=== PATIENT | male | born 1940 | race Caucasian/White ===

== ENCOUNTER → 2017-05-06 | Outpatient (CLI) | payer MEDICARE ==
[~2017-05-06] MED LIST: ASPIRIN81 M1 PO; LIPITOR10 MG PO; NORVASC10 MG PO; PRILOSEC20 MG PO; VITAMIN B12; [UNRECOGNIZED DRUG - REMARK]; [UNRECOGNIZED DRUG - REMARK]; [UNRECOGNIZED DRUG - REMARK]
[2017-05-06 07:34] LABS: HEMATOCRIT 50.9 % (42.0-52.0); HEMOGLOBIN 16.7 g/dl (14.0-18.0); MEAN CELL VOLUME 100.2 fl (80.0-94.0); MEAN CORPUSCULAR HGB 32.9 pg (27.0-31.0); MEAN CORPUSCULAR HGB CONC 32.8 g/dl (33.0-37.0); MEAN PLATELET VOLUME 10.1 fl (9.6-12.3); RED BLOOD COUNT 5.08 10*6/uL (4.50-5.90); WHITE BLOOD COUNT 8.5 10*3/uL (4.8-10.8)
[2017-05-06 07:58] LABS: ALBUMIN 3.7 gm/dl (3.1-4.5); BUN 10 mg/dl (7-24); CARBON DIOXIDE 34 mmol/L (21-32); CHLORIDE 98 mmol/L (98-107); CHOLESTEROL 170 mg/dL (<200); EST GLOM FILT AFRICAN AMERICAN > 60 ml/min; GLUCOSE 96 mg/dL (65-99); POTASSIUM 4.5 mmol/L (3.5-5.1); SGOT/AST 18 IU/L (3-35); SGPT/ALT 17 U/L (12-78); SODIUM 139 mmol/L (136-145)
[2017-05-06 08:00] LABS: ALKALINE PHOSPHATASE 64 U/L (45-117); BILIRUBIN, TOTAL 1.2 mg/dl (0.2-1.0); HDL CHOLESTEROL 79 mg/dl (40-60); LDL CHOLESTEROL 74 mg/dL (9-159); TOTAL PROTEIN 7.5 gm/dL (6.4-8.2); TRIGLYCERIDES 85 mg/dl (<150); VLDL CHOLESTEROL 17 mg/dL (6-40)
[2017-05-06 08:50] LABS: VITAMIN D, 25-HYDROXY 31.4 ng/mL (30-100)
[2017-05-07 10:03] LABS: PROSTATE SPECIFIC AG FREE 1.13 ng/mL; PSA % FREE 16.9 % (.)
== END | disposition home or self-care (01) ==
LOC: LAB 07:15
PROVIDERS: Family Medicine
DX: J44.9 Chronic obstructive pulmonary disease, unspecified (principal); M51.37 Other intervertebral disc degeneration, lumbosacral region; M48.56XA Collapsed vertebra, not elsewhere classified, lumbar region, initial encounter for fracture; M47.897 Other spondylosis, lumbosacral region; I10 Essential (primary) hypertension; E78.00 Pure hypercholesterolemia, unspecified; E55.9 Vitamin D deficiency, unspecified; N40.0 Benign prostatic hyperplasia without lower urinary tract symptoms; K21.9 Gastro-esophageal reflux disease without esophagitis; E53.8 Deficiency of other specified B group vitamins; Z95.0 Presence of cardiac pacemaker; Z95.5 Presence of coronary angioplasty implant and graft

== ENCOUNTER → 2017-05-16 | Outpatient (CLI) | payer MEDICARE | END | disposition home or self-care (01) | LOC: RAD 11:05 | DX: Z13.820 Encounter for screening for osteoporosis (principal); M81.0 Age-related osteoporosis without current pathological fracture ==

== ENCOUNTER → 2017-09-05 | Outpatient (CLI) | payer MEDICARE ==
[2017-09-05 08:22] LABS: HEMATOCRIT 49.6 % (42.0-52.0); HEMOGLOBIN 16.4 g/dl (14.0-18.0); MEAN CELL VOLUME 100.6 fl (80.0-94.0); MEAN CORPUSCULAR HGB 33.3 pg (27.0-31.0); MEAN CORPUSCULAR HGB CONC 33.1 g/dl (33.0-37.0); MEAN PLATELET VOLUME 10.3 fl (9.6-12.3); RED BLOOD COUNT 4.93 10*6/uL (4.50-5.90); RED CELL DISTRI WIDTH 12.9 % (0-14.5); WHITE BLOOD COUNT 7.6 10*3/uL (4.8-10.8)
[2017-09-05 08:55] LABS: ALBUMIN 3.9 gm/dl (3.1-4.5); BUN 9 mg/dl (7-24); CHLORIDE 96 mmol/L (98-107); CHOLESTEROL 170 mg/dL (<200); CREATININE 0.95 mg/dL (0.70-1.30); POTASSIUM 3.9 mmol/L (3.5-5.1); SGOT/AST 23 IU/L (3-35); SGPT/ALT 19 U/L (12-78); SODIUM 136 mmol/L (136-145); TRIGLYCERIDES 59 mg/dl (<150); VLDL CHOLESTEROL 12 mg/dL (6-40)
[2017-09-05 08:58] LABS: ALKALINE PHOSPHATASE 58 U/L (45-117); HDL CHOLESTEROL 80 mg/dl (40-60); LDL CHOLESTEROL 78 mg/dL (9-159); TOTAL PROTEIN 7.7 gm/dL (6.4-8.2)
== END | disposition home or self-care (01) ==
LOC: LAB 07:39
PROVIDERS: Family Medicine
DX: E78.00 Pure hypercholesterolemia, unspecified (principal); E55.9 Vitamin D deficiency, unspecified; Z79.899 Other long term (current) drug therapy

== ENCOUNTER → 2017-09-16 | Outpatient (CLI) | payer MEDICARE ==
[2017-09-17 09:05] LABS: PROSTATE SPECIFIC AG FREE 0.85 ng/mL; PROSTATE SPECIFIC AG, SERUM 3.7 ng/mL (0.0-4.0)
== END | disposition home or self-care (01) ==
LOC: LAB 12:34
PROVIDERS: Family Medicine
DX: R97.20 Elevated prostate specific antigen [PSA] (principal)

== ENCOUNTER → 2017-09-18 | Outpatient (CLI) | payer MEDICARE | END | disposition home or self-care (01) | LOC: US 12:46 | DX: I65.23 Occlusion and stenosis of bilateral carotid arteries (principal) ==

== ENCOUNTER 2018-03-13 20:55 | Inpatient (IN) | payer MEDICARE ==
[~2018-03-13] VITALS: Ht 182.8 cm; Wt 68.9 kg
--- NOTE | ~2018-03-13 | CON ---
[place], [place] REPORT OF CONSULTATION NAME: FUNMI SCHNEIDER [facility] #: [id number] UNIT #: [id number] ROOM: 511 DOCTOR: NASREEN HOGAN MD BIRTHDATE: [birth year] DOS: 03/16/2018 PULMONARY CONSULTATION, EVALUATION, AND MANAGEMENT CONSULTATION REQUESTED BY: Hospitalist services. REASON FOR CONSULTATION: To assess the patient for current acute exacerbation of chronic obstructive pulmonary disease. HISTORY OF PRESENT ILLNESS: An 78-year-old white male has been noted with ongoing symptoms of cough about a month or so noted with a recent increase of the coughing frequency and intensity. The coughing has been noted worse with intermittent sputum expectoration noted purulent. There were no symptoms of hemoptysis. He was also reporting symptoms of shortness of breath that occurs with exertion with wheezing at times. The patient denies symptoms of hemoptysis. Denies symptoms of chest pain. He has been admitted to the hospital for the medical management of acute exacerbation of COPD. REVIEW OF SYSTEMS: CONSTITUTIONAL SYMPTOMS: Fatigue and tiredness has reported. Denies symptoms of fever or chills. EYES: Denies burning, redness, or tenderness. EAR, NOSE, AND THROAT SYMPTOMS: Denies sore throat, hoarseness, or otalgia. GASTROINTESTINAL SYMPTOMS: Denies dysphagia, nausea, vomiting, diarrhea, abdominal pain, hematemesis, or melena. CARDIOVASCULAR SYSTEM: Denies angina pain, palpitation, and edema of the lower extremities. LUNGS: The patient was noted with lightheadedness. The patient with the coughing previously. No wheezing. Cardiac syncope. GENITOURINARY SYMPTOMS: No dysuria, suprapubic pain, or hematuria. MUSCULOSKELETAL: No acute joint pain, redness, or tenderness. SKIN: No abnormal lesions or rashes. MUSCULOSKELETAL SYMPTOMS: The patient denies any pain, deformities, trauma, or redness of any joints. Remaining systems were reviewed and they were noted all negative. PAST MEDICAL HISTORY: Known for: 1. Longstanding history of COPD. The patient is currently using the Ventolin HFA and bronchodilators. 2. Coronary artery disease. 3. Cardiac dysrhythmia with pacemaker in place. 4. Zenker's diverticulum. 5. Right cholesteatoma. PAST SURGICAL HISTORY: Noted with: 1. Cataract extraction and lens implantation. 2. Right carotid artery endarterectomy. 3. Right cholesteatoma removal. 4. Pacemaker insertion in 2010 and then generator replacement in 2017. [place], [place] REPORT OF CONSULTATION NAME: FUNMI SCHNEIDER UNIT #: [id number] ROOM: [facility] DOCTOR: EMELYN MERCHANT MD,NASREEN BIRTHDATE: [birth year] SOCIAL HISTORY: The patient is and lives at home. He has been noted with active tobacco use and smoked one and half pack of cigarettes per day previously, currently smoking half a pack of cigarettes per day. Smoking started in his early teens. The patient worked in the [employer] for 38 years as well. He is , lives at home, and has 6 children. FAMILY HISTORY: The patient's father at [id number] from complication of unknown cancer. Mother at the age of 80+-years-old from complication of rheumatic heart disease. HOME MEDICATIONS: Listed as use of Prilosec, atorvastatin, aspirin, Norvasc, and vitamin B12. PHYSICAL EXAMINATION: GENERAL: This is an 78-year-old male who has been currently resting comfortably on the bed. He has been expectorated moderate amount of sputum. The patient is on the bedside. The patient is in the ____. Height was noted as 6 feet, weight of 152 pounds with BMI of 20. VITAL SIGNS: The vital signs of the patient which were recorded showed the temperature noted normal, respiratory rate of 20, heart rate of 63, earlier noted 122 beats per minute yesterday evening. Blood pressure 124/54 noted this morning. Pulse oxygen saturation noted on 2 liters nasal cannula is 97% saturation. HEENT: Examination shows head was atraumatic. Eyes nonicterus. NECK: Supple. CARDIOVASCULAR: S1, S2 is audible. LUNGS: The patient was noted without any crackles. Decreased breath sounds noted with expiratory wheezing in the lungs bilaterally. ABDOMEN: Soft, nontender. Bowel sounds present. EXTREMITIES: The patient was noted without any acute edema. MUSCULOSKELETAL: No deformities. CENTRAL NERVOUS SYSTEM: Cranial nerves 2-12 intact. VISIBLE SKIN: No lesions or rashes. LABORATORY DATA: CBC of the patient that was done on 03/13/2018 on admission was essentially noted as normal CBC. The lactic acid on 03/13/2018 normal. PT and INR on 03/13/2018 normal. CMP on 03/13/2018 was noted normal BUN and creatinine. Sodium 134. CO2 33. CBC of the patient of 03/14/2018 shows still normal CBC. CMP of the patient of 03/14/2018 was noted with normal BUN and creatinine. Sodium 135. One view chest x-ray that was done on admission was noted without any acute infiltration, change of COPD, and hyperinflation were noted. IMPRESSION: 1. The patient who has been currently admitted to the hospital noted with ongoing acute exacerbation of chronic obstructive pulmonary disease with acute bronchitis. 2. History of chronic longstanding nicotine abuse. The patient has been noted without any long-term medication. The patient has chronic obstructive pulmonary disease as well. There was no infiltration noted on the chest x-ray. [place], [place] REPORT OF CONSULTATION NAME: FUNMI SCHNEIDER UNIT #: [id number] ROOM: 511 DOCTOR: NASREEN HOGAN MD BIRTHDATE: [birth year] PLAN OF MANAGEMENT: Ordered a chest x-ray. The patient has the first chest x-ray done on admission just 1 view to exclude any pulmonary infiltration. Ordered the sputum for Gram stain and culture. Continuation of antibiotics, bronchodilators, and the corticosteroids. Additional treatment changes to be made for this patient based on the progression of the illness. Supportive care, usual medical management, and other therapies. Tobacco cessation for future was discussed with the patient in detail. He will be started on Dulera at this time during current hospitalization with further change in medical management of COPD, which has been noted very likely after discharge and office assessment. NASREEN DUNAWAY MD CM:CONSTR:REPORT OF CONSULTATION 1209 03/17/18 0111 interface
--- NOTE | ~2018-03-13 | PR ---
[place], [place] PROGRESS NOTE NAME: FUNMI SCHNEIDER UNIT #: [id number] ROOM: 511 DOCTOR: NASREEN HOGAN MD BIRTHDATE: [birth year] DOS: 03/17/2018 SUBJECTIVE: The patient noted comfortable at this time, sitting side of the bed, stated reduction in sputum quantity and the cough. Denies symptoms of chest pain, shortness of breath and wheezing, was improving. There were no symptoms of hemoptysis reported by the patient. Denies any edema of the lower extremities. OBJECTIVE: VITAL SIGNS: For the patient which has been recorded showed the temperature noted as normal, respiratory rate 18, heart rate 72, blood pressure 134/76. The pulse oxygen saturation recorded as 95% saturation on 2 liters nasal cannula. HEAD, EYES, EARS, NOSE, AND THROAT: Examination shows head was atraumatic. Eyes nonicterus. NECK: Supple. CARDIOVASCULAR: S1, S2 audible. LUNGS: Without any wheeze or crackles. ABDOMEN: Soft, nontender. EXTREMITIES: Without any acute edema. LABORATORY AND DIAGNOSTIC DATA: CBC: Hemoglobin 13.9, WBC normal, platelet count normal. Creatinine was normal today. Chest x-ray, PA and lateral view yesterday was noted as severe COPD changes without acute pulmonary infiltration. IMPRESSION: 1. Resolving acute exacerbation of chronic obstructive pulmonary disease and acute tracheobronchitis. The patient with current medical management. 2. History of long-term nicotine abuse as well. PLAN OF MANAGEMENT: Continuation of the current therapy, plan of management as previously with corticosteroids, bronchodilators, and corticosteroid dose could be decreased to 40 mg b.i.d. Continuation of the Mucinex and the DuoNeb as well as Dulera use. [place], [place] PROGRESS NOTE NAME: FUNMI SCHNEIDER UNIT #: [id number] ROOM: 511 DOCTOR: NASREEN HOGAN MD BIRTHDATE: [birth year] NASREEN DUNAWAY MD CM:PNTRANS [id number] NASREEN MERCHANT MD 03/17/18 1710 interface
--- NOTE | ~2018-03-13 | PR ---
[place], [place] PROGRESS NOTE NAME: FUNMI SCHNEIDER UNIT #: [id number] ROOM: 511 DOCTOR: NASREEN HOGAN MD BIRTHDATE: [birth year] DOS: 03/18/2018 SUBJECTIVE: The patient noted comfortable at this time without acute distress. The coughing has been improving significantly in frequency and intensity as well as sputum expectoration. Shortness of breath and wheezing was also progressively resolving. OBJECTIVE: VITAL SIGNS: For the patient which were recorded showed temperature of the patient noted as normal, respiratory rate of the patient recorded as 18, heart rate 70, blood pressure 129/64. The pulse oxygen saturation of the patient recorded as 95% at rest on room air. HEENT: Examination shows head was atraumatic. Eyes nonicterus. NECK: Supple. CARDIOVASCULAR: S1, S2 is audible. LUNGS: Noted without any wheezing or crackles. ABDOMEN: Soft, nontender. Bowel sounds present. EXTREMITIES: Without any acute edema. MICROBIOLOGY: Culture of sputum preliminarily showed normal alexander. Final culture results were pending. IMPRESSION: Resolving acute respiratory failure with hypoxia, exacerbation of chronic obstructive pulmonary disease progressively. PLAN OF MANAGEMENT: The patient would be given oxygen supplementation 2 liters nasal cannula that was identified with the patient's 6-minute walk test yesterday. ____ of oxygen supplementation would be needed. Discharge the patient home with oxygen supplementation, tapering prednisone, antibiotics, other medications for COPD, and abstinence of tobacco use was advised. The assessment, management, discharge instructions were discussed with primary care attending of this patient. [place], [place] PROGRESS NOTE NAME: FUNMI SCHNEIDER UNIT #: [id number] ROOM: 511 DOCTOR: NASREEN HOGAN MD BIRTHDATE: [birth year] NASREEN DUNAWAY MD CM:PNTRANS [id number] NASREEN MERCHANT MD 03/18/181921 interface
[2018-03-13 20:57] VITALS: BP 148/68
[2018-03-13 21:20] VITALS: BP 127/72
[2018-03-13 21:36] LABS: BASO % 0.3 % (0.0-1.0); EOS # 0.1 10*3/uL (0.0-0.4); EOS % 0.5 % (1.0-4.0); HEMOGLOBIN 15.1 g/dl (14.0-18.0); LYMPH % 18.5 % (27.0-41.0); MEAN CELL VOLUME 97.1 fl (80.0-94.0); MEAN CORPUSCULAR HGB 31.2 pg (27.0-31.0); MEAN CORPUSCULAR HGB CONC 32.1 g/dl (33.0-37.0); MEAN PLATELET VOLUME 10.4 fl (9.6-12.3); MONO # 1.4 10*3/uL (0.1-1.0); NEUT # 7.2 10*3/uL (2.3-7.9); NEUT % 67.4 % (47.0-73.0); PLATELET COUNT AUTOMATED 188 10*3/uL (130-400); RED BLOOD COUNT 4.84 10*6/uL (4.50-5.90); RED CELL DISTRI WIDTH 13.2 % (0-14.5); WHITE BLOOD COUNT 10.7 10*3/uL (4.8-10.8)
[2018-03-13 21:43] LABS: INTERNATIONAL NORM RATIO 0.9 (2.0-3.5)
[2018-03-13 21:50] VITALS: BP 124/63
[2018-03-13 21:53] LABS: ALBUMIN 3.4 gm/dl (3.1-4.5); ALKALINE PHOSPHATASE 63 U/L (45-117); BUN 10 mg/dl (7-24); CHLORIDE 95 mmol/L (98-107); CREATININE 0.89 mg/dL (0.70-1.30); POTASSIUM 4.2 mmol/L (3.5-5.1); SGOT/AST 19 IU/L (3-35); SGPT/ALT 17 U/L (12-78); SODIUM 134 mmol/L (136-145); TOTAL PROTEIN 7.2 gm/dL (6.4-8.2); TROPONIN I < 0.015 ng/ml (<0.045)
[2018-03-13 22:20] VITALS: BP 123/57
[2018-03-13 22:50] VITALS: BP 132/60
[2018-03-13 23:20] VITALS: BP 142/67
[2018-03-14 00:05] VITALS: BP 146/60
[2018-03-14 07:09] LABS: BASO % 0.1 % (0.0-1.0); EOS % 0.3 % (1.0-4.0); HEMATOCRIT 43.9 % (42.0-52.0); HEMOGLOBIN 14.1 g/dl (14.0-18.0); LYMPH # 0.6 10*3/uL (1.3-4.4); LYMPH % 7.6 % (27.0-41.0); MEAN CELL VOLUME 97.6 fl (80.0-94.0); MEAN CORPUSCULAR HGB 31.3 pg (27.0-31.0); MEAN CORPUSCULAR HGB CONC 32.1 g/dl (33.0-37.0); MEAN PLATELET VOLUME 11.2 fl (9.6-12.3); MONO # 0.1 10*3/uL (0.1-1.0); MONO % 1.8 % (3.0-9.0); NEUT # 7.1 10*3/uL (2.3-7.9); NEUT % 89.9 % (47.0-73.0); PLATELET COUNT AUTOMATED 194 10*3/uL (130-400); RED CELL DISTRI WIDTH 13.4 % (0-14.5); WHITE BLOOD COUNT 7.9 10*3/uL (4.8-10.8)
[2018-03-14 07:21] LABS: ALBUMIN 3.3 gm/dl (3.1-4.5); ALKALINE PHOSPHATASE 64 U/L (45-117); BUN 10 mg/dl (7-24); CHLORIDE 93 mmol/L (98-107); CREATININE 0.93 mg/dL (0.70-1.30); PHOSPHOROUS 3.5 mg/dL (2.5-4.9); POTASSIUM 4.1 mmol/L (3.5-5.1); SGOT/AST 19 IU/L (3-35); SGPT/ALT 17 U/L (12-78); SODIUM 135 mmol/L (136-145); TOTAL PROTEIN 6.6 gm/dL (6.4-8.2)
[2018-03-14 07:25] LABS: THYROID STIM HORMONE (HS) 0.696 uIU/ml (0.358-4.75)
[2018-03-14 07:37] LABS: FREE T4 1.03 ng/dl (0.76-1.46)
[2018-03-14 08:00] VITALS: BP 125/71
[2018-03-14 12:00] VITALS: BP 138/76
[2018-03-14 16:00] VITALS: BP 147/70
[2018-03-14 20:00] VITALS: BP 138/73
[2018-03-15] VITALS: BP 142/76
[2018-03-15 08:00] VITALS: BP 137/59
[2018-03-15 12:00] VITALS: BP 126/56
[2018-03-15 16:00] VITALS: BP 125/73
[2018-03-15 20:00] VITALS: BP 134/53
[2018-03-16] VITALS: BP 120/59
[2018-03-16 08:00] VITALS: BP 124/54
[2018-03-16 12:00] VITALS: BP 133/66
[2018-03-16 16:00] VITALS: BP 122/67
[2018-03-16 20:00] VITALS: BP 110/59
[2018-03-17] VITALS: BP 109/65
[2018-03-17 06:49] LABS: BASO % 0.1 % (0.0-1.0); HEMATOCRIT 44.1 % (42.0-52.0); HEMOGLOBIN 13.9 g/dl (14.0-18.0); LYMPH # 1.1 10*3/uL (1.3-4.4); LYMPH % 11.8 % (27.0-41.0); MEAN CELL VOLUME 98.2 fl (80.0-94.0); MEAN CORPUSCULAR HGB CONC 31.5 g/dl (33.0-37.0); MEAN PLATELET VOLUME 10.2 fl (9.6-12.3); MONO # 0.9 10*3/uL (0.1-1.0); MONO % 9.6 % (3.0-9.0); NEUT # 7.2 10*3/uL (2.3-7.9); NEUT % 78.2 % (47.0-73.0); PLATELET COUNT AUTOMATED 210 10*3/uL (130-400); RED BLOOD COUNT 4.49 10*6/uL (4.50-5.90); RED CELL DISTRI WIDTH 13.2 % (0-14.5); WHITE BLOOD COUNT 9.2 10*3/uL (4.8-10.8)
[2018-03-17 07:33] LABS: CREATININE 0.79 mg/dL (0.70-1.30)
[2018-03-17 08:00] VITALS: BP 134/76
[2018-03-17 12:00] VITALS: BP 129/63
[2018-03-17 16:00] VITALS: BP 132/61
[2018-03-17 20:00] VITALS: BP 127/54
[2018-03-18 00:29] VITALS: BP 106/56
[2018-03-18 08:00] VITALS: BP 129/64
[2018-03-18] MEDS ORDERED: DULE1ARO INH (08:16)
[2018-03-18] MEDS ORDERED: LEVOFLOXACIN500 MG PO (08:16)
[2018-03-18] MEDS ORDERED: MUCINEX ER600 MG PO (08:16)
[2018-03-18] MEDS ORDERED: PREDNISONE10 MG PO (08:16)
[2018-03-18] MEDS ORDERED: VITAMIN D-32000 UNIT PO (08:16)
[2018-03-18] MEDS ORDERED: DUONEB 3 MG/3 ML3 M1 INH (09:15)
[2018-03-18] MEDS ORDERED: NICOTINE PATCH1 EAC2 TD (09:20)
== END 2018-03-18 13:26 | disposition home or self-care (01) | DRG 189 ==
LOC: ED 20:55 → EDHOLD 23:20 → 5E 23:20
PROVIDERS: Emergency Medicine; Family Medicine
DX: J96.01 Acute respiratory failure with hypoxia (principal); E87.3 Alkalosis; E87.8 Other disorders of electrolyte and fluid balance, not elsewhere classified; E87.1 Hypo-osmolality and hyponatremia; J44.0 Chronic obstructive pulmonary disease with (acute) lower respiratory infection; I50.22 Chronic systolic (congestive) heart failure; J44.1 Chronic obstructive pulmonary disease with (acute) exacerbation; J20.9 Acute bronchitis, unspecified; I25.10 Atherosclerotic heart disease of native coronary artery without angina pectoris; K22.5 Diverticulum of esophagus, acquired; K21.9 Gastro-esophageal reflux disease without esophagitis; E78.00 Pure hypercholesterolemia, unspecified; F17.210 Nicotine dependence, cigarettes, uncomplicated; I11.0 Hypertensive heart disease with heart failure; Z88.8 Allergy status to other drugs, medicaments and biological substances; Z91.041 Radiographic dye allergy status; Z98.42 Cataract extraction status, left eye; Z71.6 Tobacco abuse counseling; Z98.41 Cataract extraction status, right eye; Z95.5 Presence of coronary angioplasty implant and graft; Z95.0 Presence of cardiac pacemaker; Z80.9 Family history of malignant neoplasm, unspecified; Z79.82 Long term (current) use of aspirin; Z86.79 Personal history of other diseases of the circulatory system; Z78.9 Other specified health status